=== PATIENT | male | born 1975 | race Caucasian/White ===

== ENCOUNTER → 2017-03-24 | Outpatient (CLI) | payer MEDICAID ==
[~2017-03-24] MED LIST: BACT800T5 PO; CEPH-460 PO; CYCL7.5T33 PO; DILA8TAB4 PO; MORP1TAB27 PO; OXYC1SOL5 PO; OXYC1TAB63 PO
[2017-03-24 12:59] LABS: HEMATOCRIT 31.7 % (39.0-51.0); MEAN CELL VOLUME 82.8 FL (80.0-100.0); MEAN CORPUSCULAR HEMOGLOBIN 27.6 PG (27.0-34.0); MEAN CORPUSCULAR HGB CONC 33.3 % (32.0-36.0); PLATELET COUNT 271 TH/MM3 (150-450); RED BLOOD COUNT 3.82 MIL/MM3 (4.50-5.90); RED CELL DISTRIBUTION WIDTH 14.9 % (11.6-17.2); WHITE BLOOD COUNT 6.8 TH/MM3 (4.0-11.0)
[2017-03-24 13:01] LABS: HEMO FLAGS AUTO DIFF
[2017-03-24 13:07] LABS: APTT (PATIENT) 42.3 SEC (24.3-30.1); PROTHROMBIN TIME - PATIENT 10.6 SEC (9.8-11.6)
[2017-03-24 13:25] LABS: BLOOD, URINE NEG (NEG); CALCIUM OXALATE CRYSTALS,URINE FEW /hpf; COMMENT (UR) CULT NOT INDICATED; CULTURE IF INDICATED CULT NOT INDICATED; GLUCOSE,URINE NEG (NEG); KETONE, URINE NEG (NEG); MUCUS URINE MANY /lpf (OCC); NITRITE,URINE NEG (NEG); PH, URINE 6.5 (5.0-8.5); URINE COLOR DARK-YELLOW (YELLW/STRAW)
[2017-03-24 13:26] LABS: BICARBONATE 29.1 MEQ/L (21.0-32.0); POTASSIUM 4.3 MEQ/L (3.5-5.1)
[2017-03-24 13:51] LABS: BANDS 7 % (0-6); EOSINOPHILS 2 % (0-4); NEUTROPHIL # MANUAL DIFF 3.4 TH/MM3 (1.8-7.7); PLATELET ESTIMATE SMEAR NORMAL (NORMAL); PLATELET MORPHOLOGY NORMAL (NORMAL); POLYS (SEG NEUTROPHILS) 43 % (16-70); SCAN/DIFF FINAL DIFF MANUAL; WBC DIFF SAMPLE 100
--- NOTE | 2017-03-27 11:35 | EKG ---
Date Performed: 03/24/2017 Time Performed: 11:44:10 PTAGE: 42 years EKG: Sinus rhythm NORMAL ECG PREVIOUS TRACING : 07/04/2000 19.20 No significant change from previous tracing noted. DOCTOR: Gab Nielson Interpretating Date/Time 03/27/2017 11:34:34
== END ==
LOC: CPRE 11:15
PROVIDERS: ATTEND Orthopaedic Surgery Orthopaedic Surgery of the Spine
DX: Z01.812 Encounter for preprocedural laboratory examination (principal); Z01.810 Encounter for preprocedural cardiovascular examination; M16.12 Unilateral primary osteoarthritis, left hip
CPT/HCPCS: 36415; 80048; 81001; 85007; 85027; 85610; 85730; 93005

== ENCOUNTER 2017-04-04 05:51 | Inpatient (IN) | payer SELFPAY ==
[~2017-04-04] VITALS: Ht 180.3 cm; Wt 80.0 kg
[~2017-04-04 05:51] MED LIST changes: -BACT800T5 PO; -CEPH-460 PO; -OXYC1SOL5 PO
[2017-04-04] MEDS ORDERED: GENTAMICIN SULFATE 80 MG/2 ML VIAL ONE (06:18)
[2017-04-04] MEDS ORDERED: CHLORHEXIDINE GLUCONATE 2 % 1 PACK (2 CLOTHS) TOPICAL PRN (06:30)
[2017-04-04] MEDS ORDERED: METOPROLOL TARTRATE 25 MG TAB PO PRN (06:30)
[2017-04-04] MEDS ORDERED: LACTATED RINGER'S 1000 ML IV PRN (06:30)
[2017-04-04] MEDS ORDERED: VANCOMYCIN 1000 MG/NS 250 ML (for <70 kg) IV SCH ×2 (06:30)
[2017-04-04] MEDS ORDERED: SODIUM CHLORID 0.9% 500 ML IV PRN (06:30)
[2017-04-04] MEDS ORDERED: POVIDONE IODINE 7.5% SCRUB 118 ML BOTTLE TOPICAL SCH (06:30)
[2017-04-04] MEDS ORDERED: ceFAZolin 2 GM PREMIX 50 ML IV SCH (06:30)
[2017-04-04] MEDS ORDERED: POVIDONE IODINE 5% (ANTISEPSIS KIT) 4 APPLICATIONS EACH NARE PRN (06:30)
[2017-04-04 06:53] VITALS: BP 118/78; PULSE 92; RESP 20; TEMP 99.4; O2SAT 100
[2017-04-04] MEDS ORDERED: HYDROmorphone HCL PF 2 MG/ML VIAL ONE (08:03)
[2017-04-04] MEDS ORDERED: TRANEXAMIC ACID INJ 800 MG in SODIUM CHLORIDE 0.9% INJ 100 ML IV SCH (08:30)
[2017-04-04] MEDS ORDERED: EXPAREL PERI-ARTICULAR INJECTION (TOTAL VOL. 60 ML) P-ARTICULR SCH ×2 (08:30)
== END 2017-04-04 09:44 | disposition short-term general hospital (02) | DRG 554 ==
LOC: HSDI 05:51
PROVIDERS: ADMIT Orthopaedic Surgery Orthopaedic Surgery of the Spine; ATTEND Orthopaedic Surgery Orthopaedic Surgery of the Spine
DX: M16.12 Unilateral primary osteoarthritis, left hip (principal); Z53.09 Procedure and treatment not carried out because of other contraindication
CPT/HCPCS: 86850; 86900; 86901; 86920; 99211; C9290; G0463; J1170; J1580; J3370; J7050; J7120

== ENCOUNTER 2017-04-06 11:11 | Emergency (ER) | payer SELFPAY ==
[~2017-04-06] VITALS: Ht 180.3 cm; Wt 77.2 kg
[2017-04-06 11:11] VITALS: BP 145/71; PULSE 116; RESP 20; TEMP 97.8; O2SAT 100
[2017-04-06] MEDS ORDERED: LIDOCAINE HCL 1% 50 ML VIAL INFIL ONE (12:00)
[2017-04-06 13:41] VITALS: BP 136/75; PULSE 99; RESP 17; O2SAT 100
[2017-04-06] MEDS ORDERED: CEPH-460 PO (13:45)
[2017-04-06] MEDS ORDERED: BACT800T5 PO (13:45)
--- NOTE | 2017-04-06 13:53 | PD ---
HPI . Cellulitis Chief Complaint: Edema Time Seen by Provider: 11:37 Travel History International Travel<30 days: No Contact w/Intl Traveler<30days: No Traveled to known affect area: No History of Present Illness HPI 42-year-old male patient presents emergency department for evaluation of cellulitis of his right forearm that is circumferential in nature. The patient is under the impression that his left hip is fractured he doesn't know when he fractured it and he needs surgery to repair it. Patient states he reported for surgery on him today and they told him that they cannot do surgery on his left hip while his right arm was infected. Patient denies any IV drug use. Patient has any fevers, chills, chest pain, shortness breath, malaise, nausea, vomiting , diarrhea. Patient is ambulatory but is leaning down grabbing the medial aspect of his left thigh due to his hip pain with each step. PFSH Past Medical History Medical History: Denies Significant Hx Cancer: No Cardiovascular Problems: No Diabetes: No Diminished Hearing: No Endocrine: No Genitourinary: No Hepatitis: No Hiatal Hernia: No Immune Disorder: No Musculoskeletal: No (LEFT HIP PAIN, HX LEFT ARM FRACTURE) Neurologic: No Psychiatric: No Reproductive: No Respiratory: No Thyroid Disease: No Past Surgical History Abdominal Surgery: Yes (GALLBLADDER) AICD: No Body Medical Devices: PLATES AND SCREWS TO LEFT ARM Cardiac Surgery: No Cholecystectomy: Yes Ear Surgery: No Endocrine Surgery: No Eye Surgery: No Genitourinary Surgery: No Gynecologic Surgery: No Joint Replacement: No Oral Surgery: No Pacemaker: No Thoracic Surgery: No Social History Alcohol Use: No Tobacco Use: Yes Substance Use: No Allergies-Medications (Allergen,Severity, Reaction): Coded Allergies: No Known Allergies (Verified Allergy, Unknown, 04/04/17) Reported Meds & Prescriptions Reported Meds & Active Scripts Active Keflex (Cephalexin) 500 Mg Cap 500 Mg PO Q6H 10 Days Bactrim DS (Sulfamethoxazole-Trimethoprim) 800-160 Mg Tab 1 Tab PO BID 10 Days Reported Flexeril (Cyclobenzaprine HCl) 7.5 Mg Tab 7.5 Mg PO BID Dilaudid (Hydromorphone HCl) 8 Mg Tab 8 Mg PO BID PRN Morphine ER (Morphine Sulfate) 100 Mg Tab 100 Mg PO DAILY Oxycodone-Acetaminophen 5-325 mg Tab 2 Tab PO Q4-6H PRN Review of Systems Except as stated in HPI: all other systems reviewed are Neg Physical Exam Narrative GENERAL: Well-nourished, well-developed 42-year-old male patient in no acute distress. Nontoxic appearing. SKIN: Right arm erythematous and edematous. 2 cm in diameter area of fluctuation on the dorsal aspect of the right forearm. 1 centimeter in diameter area of fluctuation on the volar aspect of the right forearm. Patient moving arm freely. Right arm neurovascularly intact. HEAD: Normocephalic. Atraumatic. EYES: No scleral icterus. No injection or drainage. NECK: Supple, trachea midline. No JVD or lymphadenopathy. CARDIOVASCULAR: Regular rate and rhythm without murmurs, gallops, or rubs. Radial pulses +2 bilaterally. RESPIRATORY: Breath sounds equal bilaterally. No accessory muscle use. GASTROINTESTINAL: Abdomen soft, non-tender, nondistended. MUSCULOSKELETAL: Full range of motion in right shoulder, elbow, wrist and hand. No obvious deformity, ecchymosis cyanosis. BACK: Nontender without obvious deformity. No CVA tenderness. Data Data Last Documented VS Vital Signs Date Time Temp Pulse Resp B/P (MAP) Pulse Ox O2 Delivery O2 Flow Rate FiO2 04/06/17 13:41 99 17 136/75 (95) 100 Room Air 04/06/17 11:11 97.8 Orders Orders Lidocaine 1% Inj (50 Ml) (Xylocaine 1% I (04/06/17 12:00) Wound Culture And Gram Stain (04/06/17 11:48) Sulfamet-Trimeth Ds 800-160 Mg (Bactrim (04/06/17 14:00) Cephalexin (Keflex) (04/06/17 14:00) Ed Discharge Order (04/06/17 13:53) [facility] Medical Decision Making Medical Screen Exam Complete: Yes Emergency Medical Condition: Yes Differential Diagnosis Differential diagnoses include but not limited to cellulitis, abscess, wound infection Narrative Course 42-year-old male patient presents emergency department for evaluation of right arm cellulitis with abscess formation on the dorsal and volar aspect. I&D was performed. Please see my procedural narrative. Patient is up-to-date on his tetanus. He states he had 2 years ago. Patient is afebrile. She was tachycardic on arrival but his heart rate has since come down to 99. First dose of by mouth antibiotics will be given in the emergency department. Patient will be discharged home with prescription for Bactrim and Keflex and instructions to return the emergency Department in 2 days for wound recheck. Patient states the signs and symptoms to return to the emergency department sooner such as streaking, increasing pain, fevers. Patient is stable for discharge. Procedures Procedure Narrative INCISION AND DRAINAGE OF ABSCESS: The area was prepped and was sterilely draped. A subcutaneous wheal of 1 % Xylocaine with a total number 5 mL was used to anesthetize the area properly. A number 11 scalpel was used to make a 1 -cm incision across the area of the abscess. The abscess was drained, complex loculations were broken down, and irrigated with normal saline. Cultures were obtained. Sterile dressing applied. Patient advised to keep wound clean and dry and return the emergency Department 2 days for recheck. Diagnosis Primary Impression: Cellulitis Qualified Codes: L03.113 - Cellulitis of right upper limb Referrals: Primary Care Physician Patient Instructions: Cellulitis (DC), General Instructions Additional Instructions: Please return to emergency department if your symptoms return or worsen. Return to the emergency department in 2 days for wound recheck. Take medications as prescribed. Bactrim is free at [facility]. May take ibuprofen or Tylenol as needed for pain or fever. Daily wound care. Keep wound clean and dry. May take showers and pat wound dry after shower. Do not submerge wound in water Med/Other Pt SpecificInfo: Prescription(s) given, Wound Care Scripts Cephalexin (Keflex) 500 Mg Cap 500 MG PO Q6H for Infection for 10 Days, #40 CAP 0 Refills Prov: Gabriela Diaz Meena CONTEH 04/06/17 Sulfamethoxazole-Trimethoprim (Bactrim DS) 800-160 Mg Tab 1 TAB PO BID for Infection for 10 Days, #20 TAB 0 Refills Prov: Gabriela Diaz Meena CONTEH 04/06/17 Disposition: 01 DISCHARGE HOME Condition: Stable Gabriela Diaz Meena CONTEH Apr 06, 2017 13:53
[2017-04-06] MEDS ORDERED: CEPHALEXIN MONOHYDRATE 500 MG CAP PO ONE (14:00)
[2017-04-06] MEDS ORDERED: SULFAMETHOXAZOLE-TRIMETHOPRIM DS 800-160 MG TAB PO ONE (14:00)
== END 2017-04-06 14:42 | disposition home or self-care (01) ==
LOC: NEPD 11:11
DX: L03.113 Cellulitis of right upper limb (principal); A49.8 Other bacterial infections of unspecified site; R00.0 Tachycardia, unspecified; Z72.0 Tobacco use
CPT/HCPCS: 10060; 87070; 87185; 87205